=== PATIENT | female | born 1945 | race Caucasian/White ===

== ENCOUNTER 2017-02-06 10:26 | Emergency (ER) | payer MEDICARE, MEDICAID ==
[~2017-02-06] VITALS: Ht 165.1 cm; Wt 72.0 kg
[~2017-02-06 10:26] MED LIST: ALBU8.5H3; ASPI-535; AZIT250T94 PO; CALC-600; ENAL20TA77; IBUP-1542; IBUP-1542 PO; LEVO75TA65; PROM5SYR2 PO; SENNA; TRAM50TA2 PO; VALA10004 PO
[2017-02-06 10:30] VITALS: Ht 165.1 cm; Wt 72.0 kg
[2017-02-06] MEDS ORDERED: ACETAMINOPHEN 500 MG TAB PO STA (11:06)
[2017-02-06 11:49] LABS: ADD UMIC YES; URINE BILIRUBIN (Dip) NEGATIVE (NEGATIVE); URINE BLOOD (Dip) 2+ (NEGATIVE); URINE COLOR LT. YELLOW (YELLOW); URINE GLUCOSE (Dip) NEGATIVE (NEGATIVE); URINE KETONES (Dip) NEGATIVE (NEGATIVE); URINE LEUKOCYTE ESTERASE (Dip) NEGATIVE (NEGATIVE); URINE NITRITE (Dip) NEGATIVE (NEGATIVE); URINE TOTAL PROTEIN (Dip) NEGATIVE (NEGATIVE); URINE UROBILINOGEN (Dip) 0.2 E.U./dL (0.1-1.0)
--- NOTE | 2017-02-06 12:03 | RADRPT ---
PROCEDURE: XR Chest. CLINICAL INDICATION: Fever TECHNIQUE: Chest AP portable COMPARISON: 10/09/2016 FINDINGS: The mediastinal structures are unremarkable. There is calcification of the thoracic aorta (consiste nt with atherosclerosis). The heart is normal in size and configuration. The pulmonary vascularity is normal. There are normal lung volumes. There is bibasilar subsegmental atelectasis. No consol idation is identified. The pleural spaces are unremarkable. There are senescent changes of the axi al skeleton. IMPRESSION: Calcification of the thoracic aorta (consistent with atherosclerosis). Normal lung volumes. Mild bibasilar subsegmental atelectasis No consolidation or failure identified RPTAT: HGDB .Nael Calderon MD, MD Date Time Electronically viewed and signed by .Nael Calderon MD, on 02/06/2017 12:02 .B/
--- NOTE | 2017-02-06 12:09 | ERD ---
ER Documentation Chief Complaint Date/Time DATE: 02/06/17 TIME: 12:08 Chief Complaint GENERALIZED BODY WEAKNESS,CHILLS,GENERALIZED BODY PAIN HPI This is a 71-year-old female with a history of asthma presenting to the emergency department complaining of body aches and chills for the past 3 days. Patient rates this 6 out of 10. Patient denies chest pain, shortness of breath , abdominal pain, dysuria, nausea, vomiting, diarrhea, cough. Patient has not tried any medications today. ROS All systems reviewed and are negative except as per history of present illness. Medications Home Meds Active Scripts Levofloxacin* (Levaquin*) 750 Mg Tablet, 750 MG PO DAILY for 5 Days, TAB Prov:FLIP NGO PA-C 02/06/17 Acetaminophen* (Tylenol*) 325 Mg Tablet, 2 TAB PO Q4 Y for PAIN AND OR ELEVATED TEMP, #30 TAB Prov:FLIP NGO PA-C 02/06/17 Azithromycin* (Zithromax*) 250 Mg Tablet, 250 MG PO .ROSA ISELACK DIRECTED, #6 TAB TAKE 500 MG (2 TABS) THE FIRST DAY THEN 250 MG (1 TAB) DAYS 2-5 Prov:FLIP NGO PA-C 10/09/16 Promethazine HCl/Codeine (Prometh-Codein 6.25-10 mg/5 ml) 5 Ml Syrup, 5 ML PO Q6 Y for COUGH, #60 Prov:FLIP NGO PA-C 10/09/16 Ibuprofen* (Motrin*) 600 Mg Tab, 600 MG PO Q6H Y for PAIN AND OR ELEVATED TEMP, #30 TAB Prov:FLIP NGO PA-C 10/09/16 Tramadol HCl (Tramadol HCl) 50 Mg Tablet, 50 MG PO Q4 Y for PAIN, #20 TAB Prov:ELISE CASANOVA PA-C 09/05/16 Valacyclovir HCl (Valtrex) 1,000 Mg Tablet, 1000 MG PO TID for 7 Days, TAB Prov:ELISE CASANOVA PA-C 09/05/16 Reported Medications Ibuprofen* (Ibuprofen*) 600 Mg Tablet 03/04/10 Levothyroxine Sodium* (Levoxyl*) 75 Mcg Tablet 03/04/10 Albuterol Sulfate* (Proair HFA*) 8.5 Gm Hfa.aer.ad 03/04/10 Senna 03/04/10 Enalapril (Enalapril) 20 Mg Tablet 03/04/10 Calcium (Calcium) 500 Mg Tablet 02/05/10 Aspirin Ec (Aspir 81) 81 Mg Tablet. 02/05/10 Allergies Allergies: Coded Allergies: iodine (Verified Allergy, Mild, 02/06/17) PMhx/Soc History of Surgery: Yes (SEE EMR) Anesthesia Reaction: No Hx Neurological Disorder: No Hx Respiratory Disorders: Yes (ASTHMA) Hx Cardiac Disorders: Yes (HTN) Hx Psychiatric Problems: No Hx Miscellaneous Medical Probl: Yes (SHINGLES) Hx Alcohol Use: No Hx Substance Use: No Hx Tobacco Use: No Smoking Status: Never smoker Physical Exam Vitals Vital Signs Date Time Temp Pulse Resp B/P Pulse Ox O2 Delivery O2 Flow Rate FiO2 02/06/17 10:30 100.1 88 18 147/67 98 Physical Exam Const: Well-developed well-nourished Head: Atraumatic Eyes: Normal Conjunctiva ENT: Normal External Ears, Nose and Mouth. Neck: Full range of motion..~ No meningismus. Resp: Clear to auscultation bilaterally Cardio: Regular rate and rhythm, no murmurs Abd: Soft, non tender, non distended. Normal bowel sounds Skin: No petechiae or rashes Back: No midline or flank tenderness Ext: No cyanosis, or edema Neur: Awake and alert Psych: Normal Mood and Affect Result Diagram: 02/06/17 1240 02/06/17 1240 Results 24 hrs Laboratory Tests Test 02/06/17 11:16 02/06/17 12:40 Urine Color LT. YELLOW Urine Clarity CLEAR Urine pH 6.0 Urine Specific [place] 1.010 Urine Ketones NEGATIVE Urine Nitrite NEGATIVE Urine Bilirubin NEGATIVE Urine Urobilinogen 0.2 E.U./dL Urine Leukocyte Esterase NEGATIVE Urine Microscopic RBC 2-5/HPF Urine Microscopic WBC NONE SEEN/HPF Urine Hemoglobin 2+ Urine Glucose NEGATIVE% Urine Total Protein NEGATIVE White Blood Count 9.810^3/ul Red Blood Count 4.1410^6/ul Hemoglobin 12.7g/dl Hematocrit 37.4% Mean Corpuscular Volume 90.3fl Mean Corpuscular Hemoglobin 30.7pg Mean Corpuscular Hemoglobin Concent 34.0g/dl Red Cell Distribution Width 13.7% Platelet Count 57042^3/UL Mean Platelet Volume 11.3fl Neutrophils % 70.2% Lymphocytes % 18.4% Monocytes % 10.8% Eosinophils % 0.2% Basophils % 0.2% Nucleated Red Blood Cells % 0.0/100WBC Neutrophils # 6.910^3/ul Lymphocytes # 1.810^3/ul Monocytes # 1.110^3/ul Eosinophils # 0.010^3/ul Basophils # 0.010^3/ul Nucleated Red Blood Cells # 0.010^3/ul Sodium Level 137mmol/L Potassium Level 4.0mmol/L Chloride Level 100mmol/L Carbon Dioxide Level 25mmol/L Anion Gap 16 Blood Urea Nitrogen 19mg/dl Creatinine 0.76mg/dl Glucose Level 117mg/dl Calcium Level 9.3mg/dl Total Bilirubin 0.9mg/dl Direct Bilirubin 0.00mg/dl Indirect Bilirubin 0.9mg/dl Aspartate Amino Transf (AST/SGOT) 30IU/L Alanine Aminotransferase (ALT/SGPT) 26IU/L Alkaline Phosphatase 125IU/L Troponin I < 0.012ng/ml Total Protein 8.0g/dl Albumin 4.3g/dl Globulin 3.70g/dl Albumin/Globulin Ratio 1.16 Lipase 138U/L Current Medications Medications (Trade) Dose Ordered Sig/[place] Route PRN Reason Start Time Stop Time Status Last Admin Dose Admin Acetaminophen 1000 mg 1,000 mg ONCE STAT PO 02/06/17 11:06 02/06/17 11:07 DC 02/06/17 11:17 Sodium Chloride (NS) 1,000 ml @ 1,000 mls/hr Q1H STAT IV 02/06/17 12:29 02/06/17 13:28 DC 02/06/17 12:37 Procedures/MDM This is a 71-year-old female with a history of asthma presenting to the emergency department with a chief complaint of generalized body pain and chills for the past 3 days with no other complaints. Patient's vitals showed a temperature of 100.1. This is likely due to pneumonia. IV access is established. Patient was given Tylenol 1000 mg and 1 L fluids. Lab work was drawn. CBC did not show any evidence of leukocytosis or anemia. CMP did not show any evidence of renal, liver, or electrolyte abnormalities. Lipase was normal. UA did not show any evidence of urinary tract infection. On examination patient did not have any evidence of respiratory distress, her lungs are clear ulceration bilaterally. An EKG was done in the ER and was unremarkable for STEMI or pericarditis. Chest x-ray did not show any infiltrates, however a CT abdomen and pelvis was done and radiologist stated that there was 5.1 x 2.6 x 2.5 cm right middle lobe juxtapleural consolidation , may represent pneumonia or pulmonary mass. We will empirically treat patient with Levaquin outpatient for 5 days, through translation we have discussed to follow-up with primary care physician for further evaluation and management. Prescription Levaquin and Tylenol was given. Patient is stable for discharge. I consulted my supervising physician regarding this patient who has helped and agrees with this plan above EKG: read and signed off by myself and Rate/Rhythm: [Normal Sinus Rhythm at 93 bpm] QRS, ST, T-waves: [No changes consistent w/ acute ischemia] Impression: [No evidence of ischemia or arrhythmia] CXR: Calcification of the thoracic aorta (consistent with atherosclerosis). Normal lung volumes. Mild bibasilar subsegmental atelectasis No consolidation or failure identified CT abd and pelvis without contrast: 1. 5.1 x 2.6 x 2.5 cm right middle lobe juxtapleural consolidation, may represent pneumonia or pulmonary mass. Recommend follow-up to resolution. 2. No evidence of abdominopelvic acute inflammatory process, mass, or lymphadenopathy. 3. Small 9 mm hypodense left hepatic lobe lesion, too small to characterize but likely representing a cyst. Departure Diagnosis: Primary Impression: Fever Additional Impression: Pneumonia Condition: Stable FLIP NGO PA-C Feb 06, 2017 12:09
[2017-02-06] MEDS ORDERED: SOD CHLORIDE 0.9% 1,000 ML IV STA (12:29)
[2017-02-06 13:02] LABS: ADD SCAN DIFF NO
[2017-02-06 13:04] LABS: BASOPHILS % 0.2 % (0.0-2.0); EOSINOPHILS % 0.2 % (0.0-7.0); HEMATOCRIT 37.4 % (37.0-47.0); HEMOGLOBIN 12.7 g/dl (12.0-16.0); LYMPHOCYTES # 1.8 10^3/ul (0.8-2.9); LYMPHOCYTES % 18.4 % (15.0-51.0); MEAN CORPUSCULAR HEMOGLOBIN 30.7 pg (29.0-33.0); MEAN CORPUSCULAR VOLUME 90.3 fl (82.0-101.0); MEAN PLATELET VOLUME 11.3 fl (7.4-10.4); MONOCYTE # 1.1 10^3/ul (0.3-0.9); MONOCYTES % 10.8 % (0.0-11.0); NEUTROPHIL # 6.9 10^3/ul (1.6-7.5); NEUTROPHILS % 70.2 % (39.0-77.0); PLATELET COUNT 195 10^3/UL (140-415); RED BLOOD COUNT 4.14 10^6/ul (4.20-5.40); RED CELL DISTRIBUTION WIDTH 13.7 % (11.5-14.5); WHITE BLOOD COUNT 9.8 10^3/ul (4.8-10.8)
[2017-02-06 13:19] LABS: ALBUMIN 4.3 g/dl (3.3-4.9)
[2017-02-06 13:22] LABS: BILIRUBIN,INDIRECT 0.9 mg/dl (0-1.1); BILIRUBIN,TOTAL 0.9 mg/dl (0.2-1.3); CREATININE 0.76 mg/dl (0.44-1.00)
[2017-02-06 13:23] LABS: ALBUMIN/GLOBULIN RATIO 1.16; CALCIUM 9.3 mg/dl (8.4-10.2)
--- NOTE | 2017-02-06 14:19 | RADRPT ---
PROCEDURE: CT Abdomen and Pelvis without contrast. CLINICAL INDICATION: Abdominal pain, fever. TECHNIQUE: CT scan of the abdomen and pelvis without contrast was performed on a multidetector hig h-resolution CT scanner. The patient was scanned without intravenous contrast. Coronal and sagittal reformatted images were obtained from the axial source images. Images were reviewed on a high-resol [employer] PACS workstation. One or more of the following dose reduction techniques were used: Automated exposure control, adjustment of the mA and/or kV according to patient size, use of iterative recon struction technique. The total exam CTDI equals 9.86 mGy and the total exam DLP equals 514.02 mGy-c m. COMPARISON: None. FINDINGS: CT abdomen: There is a 5.1 x 2.6 x 2.5 cm juxtapleural consolidation in the anterior right middle lobe (image 11 , series 3). The lung bases are otherwise clear. The heart size is normal, without pericardial thi ckening or effusion. A 9 mm hypodense lesion in the left hepatic lobe is too small to characterize but likely represents a cyst. Small calcifications are present in the inferior right hepatic lobe. Otherwise, the liver is normal in size and density without focal mass or intrahepatic biliary dilatation. The spleen is no rmal in size and homogeneous in density. The stomach is grossly unremarkable. The pancreas as visu alized is normal. The gallbladder and biliary tree are unremarkable and there is no evidence for bi liary dilatation. The adrenal glands are symmetric and normal. The kidneys are symmetrically unrem arkable as well. No renal calculus or obstructive uropathy or mass lesion is seen. The aorta is of normal caliber. There is no retroperitoneal lymphadenopathy. The barak hepatis reg ion is clear. The small bowel and mesentery, as visualized, are unremarkable. CT pelvis: The small bowel loops situated within the pelvis are unremarkable. The pelvic organs are normal. T he pelvic sidewalls and inguinal regions are clear. The sigmoid colon and rectum are unremarkable. The appendix is normal. No mass, lymphadenopathy, or free fluid is seen. No acute inflammation is s een. Moderate degenerative changes are present throughout the visualized thoracolumbar spine. No osteoly tic or osteoblastic lesion is detected. IMPRESSION: 1. 5.1 x 2.6 x 2.5 cm right middle lobe juxtapleural consolidation, may represent pneumonia or pulm onary mass. Recommend follow-up to resolution. 2. No evidence of abdominopelvic acute inflammatory process, mass, or lymphadenopathy. 3. Small 9 mm hypodense left hepatic lobe lesion, too small to characterize but likely representing a cyst. RPTAT: QQ .Donnie Tipton MD, Date Time Electronically viewed and signed by .Donnie Tipton MD, on 02/06/2017 14:18 .A/
[2017-02-06] MEDS ORDERED: AZIT250T94 PO (14:25)
[2017-02-06] MEDS ORDERED: ACET325T33 PO (14:26)
[2017-02-06] MEDS ORDERED: LEVO750T25 PO (14:29)
[2017-02-06 14:45] VITALS: BP 135/72; PULSE 82; RESP 18; TEMP 98.1
== END 2017-02-06 14:46 | disposition home or self-care (01) ==
LOC: FTE 10:26
DX: R50.9 Fever, unspecified (principal); J18.9 Pneumonia, unspecified organism; J45.909 Unspecified asthma, uncomplicated; I10 Essential (primary) hypertension; Z79.82 Long term (current) use of aspirin
CPT/HCPCS: 71010; 74176; 80053; 81001; 83690; 84484; 85025; 87086; 93005; J7030; 36415; 81003; 96360